=== PATIENT | female | born 1995 | race Caucasian/White ===

== ENCOUNTER 2017-04-29 15:55 | Emergency (ER) | payer SELFPAY ==
[2017-04-29 16:25] VITALS: BP 120/60
--- NOTE | 2017-04-29 16:39 | UC ---
Throat Pain/Nasal [place] HPI - HPI Summary HPI Summary: complaint of sore throat for the ast 3 days might rabia had a fever but hasn't checked headache the glands in her neck are swollen denies coughand nasal congestion taking tylenol for pain with some relief - History of Current Complaint Chief Complaint: UCRespiratory Stated Complaint: SORE THROAT Time Seen by Provider: 04/29/17 16:34 Hx Obtained From: Patient Hx Last Menstrual Period: 04/12/17 - Allergies/Home Medications Allergies/Adverse Reactions: Allergies Allergy/AdvReac Type Severity Reaction Status Date / Time No Known Allergies Allergy Unverified 04/29/17 16:25 PMH/Surg Hx/FS Hx/Imm Hx Previously Healthy: Yes - Surgical History Surgical History: None - Family History Known Family History: Negative: Cardiac Disease, Hypertension, Diabetes - Social History Occupation: Employed Full-time Lives: With Family Alcohol Use: None Substance Use Type: None Smoking Status (MU): Never Smoked Tobacco - Immunization History Vaccination Up to Date: Yes Review of Systems Constitutional: Fever Skin: Negative Eyes: Negative ENT: Sore Throat Respiratory: Negative Cardiovascular: Negative Gastrointestinal: Negative Genitourinary: Negative Motor: Negative Neurovascular: Negative Musculoskeletal: Negative Neurological: Headache Psychological: Negative All Other Systems Reviewed And Are Negative: Yes Physical Exam Triage Information Reviewed: Yes Appearance: No Pain Distress, Well-Nourished Vital Signs: Initial Vital Signs Temp 98.9 F 04/29/17 16:20 Pulse 74 04/29/17 16:20 Resp 14 04/29/17 16:20 BP 120/60 04/29/17 16:20 Pulse Ox 98 04/29/17 16:20 Vital Signs Reviewed: Yes Eyes: Positive: Conjunctiva Clear ENT: Positive: Pharyngeal erythema, TMs normal, Tonsillar swelling. Negative: Tonsillar exudate Dental: Positive: Cervical Lymphadenopathy Respiratory: Positive: Lungs clear, Normal breath sounds, No respiratory distress Cardiovascular: Positive: RRR, No Murmur, Pulses Normal Abdomen Description: Positive: Nontender, Soft Bowel Sounds: Positive: Present Musculoskeletal Exam: Normal Neurological: Positive: Alert Psychological Exam: Normal Skin Exam: Normal Throat Pain/Nasal Course/Dx - Differential Dx/Diagnosis Differential Diagnosis/HQI/PQRI: Pharyngitis, Tonsillitis, Other - strep Provider Diagnoses: tonsilitis Discharge - Discharge Plan Condition: Stable Disposition: HOME Patient Education Materials: Tonsillitis (ED) Referrals: Yves Allen MD [Primary Care Provider] - Additional Instructions: TONSILLITIS What is Tonsillitis? Tonsillitis is an infectious condition with symptoms characterized by inflamed tonsils, fever, painful swallowing, sore throat, and a slight voice change. Other symptoms include a white or yellow coating on the tonsils, swollen lymph nodes, headache, and bad breath. Nausea, vomiting, and abdominal pain may occur in younger children. Throat infection (pharyngitis) often occurs along with tonsillitis. Tonsillitis may be caused by either viruses or bacteria, and often the symptoms are the same no matter which germ is causing the infection. Bacterial tonsillitis can be treated with antibiotics, but viral tonsillitis cannot. Sometimes healthcare providers differentiate between the two by taking a throat culture (a painless swab of the back of the throat) or a quick step test and send it to the lab. Eighty-five percent of throat cultures are negative for strep; the majority of infections are caused by a virus. Symptoms Might Include: Mild to severe sore throat and difficulty swallowing Fever Swollen, tender neck glands Headache Muscle and joint pain Loss of appetite Ear ache Breathing through the mouth Nausea or vomiting How Long Will My Symptoms Last? When tonsillitis is caused by viruses, the length of illness depends on which virus is involved. Most people are almost completely recovered within 1 week. Contagiousness: All forms of tonsillitis are contagious. Tonsillitis usually spreads from person to person by contact with the throat or nasal fluids of someone who is already infected. Drinking glasses and eating utensils should be kept separate from those of other family members and should be washed with hot soapy water, or washed in the human resources compliance manager. All family members should was their hand frequently. If you have a cough, be sure to cover your mouth when coughing. Place used tissues directly in the garbage can.
== END 2017-04-29 17:05 | disposition home or self-care (01) ==
LOC: UCCORT 15:55
DX: J03.90 Acute tonsillitis, unspecified (principal)
CPT/HCPCS: 87651; 99211; G0463

== ENCOUNTER 2017-08-23 14:00 | Emergency (ER) | payer SELFPAY ==
[2017-08-23 14:41] VITALS: BP 120/63
--- NOTE | 2017-08-23 15:00 | UC ---
Abdominal Pain Female HPI - HPI Summary HPI Summary: 21 yo female with epigastric abd pain that starts about 30 minutes after eating has occurred for about a week pain can last for hours no n/v/d no f/c currently no pain pain radiates around to back - History of Current Complaint Chief Complaint: UCGI Stated Complaint: LOWER BACK/ABD PAIN Time Seen by Provider: 08/23/17 14:44 Hx Obtained From: Patient Hx Last Menstrual Period: 08/13/17 Onset/Duration: Gradual Onset, Lasting Weeks - 1 Timing: Intermittent Episodes Lasting: - hours Severity Initially: Moderate Severity Currently: None Pain Intensity: 0 Pain Scale Used: 0-10 Numeric Location: Epigastric Radiates: Yes Radiates to: Back Character: Aching, Sharp Aggravating Factor(s): Food Alleviating Factor(s): Spontaneous Resolution Associated Signs and Symptoms: Positive: Negative Allergies/Adverse Reactions: Allergies Allergy/AdvReac Type Severity Reaction Status Date / Time No Known Allergies Allergy Unverified 08/23/17 14:36 Home Medications: Home Medications Dextromethorphan-Phenylephrine [Daytime Multi-Symptom Col 10-5-325 mg/15Ml] 1 liq PO BID PRN 08/23/17 [History Confirmed 08/23/17] PMH/Surg Hx/FS Hx/Imm Hx Previously Healthy: Yes - Surgical History Surgical History: None - Family History Known Family History: Positive: Other - GB disease Negative: Cardiac Disease, Hypertension, Diabetes - Social History Alcohol Use: None Substance Use Type: None Smoking Status (MU): Never Smoked Tobacco - Immunization History Vaccination Up to Date: Yes Review of Systems Constitutional: Negative Skin: Negative Eyes: Negative ENT: Negative Respiratory: Negative Cardiovascular: Negative Gastrointestinal: Abdominal Pain Genitourinary: Negative Motor: Negative Neurovascular: Negative Musculoskeletal: Negative Neurological: Negative Psychological: Negative Is Patient Immunocompromised?: No All Other Systems Reviewed And Are Negative: Yes Physical Exam Triage Information Reviewed: Yes Appearance: Well-Appearing, No Pain Distress, Well-Nourished Vital Signs: Initial Vital Signs Temp 98.4 F 08/23/17 14:36 Pulse 71 08/23/17 14:36 Resp 16 08/23/17 14:36 BP 120/63 08/23/17 14:36 Pulse Ox 99 08/23/17 14:36 Vital Signs Reviewed: Yes Eyes: Positive: Conjunctiva Clear ENT: Positive: Hearing grossly normal. Negative: Nasal congestion, Nasal drainage, Tonsillar exudate, Trismus, Muffled/hoarse voice Neck: Positive: Supple, Nontender, No Lymphadenopathy Respiratory: Positive: Lungs clear, Normal breath sounds, No respiratory distress Cardiovascular: Positive: RRR, No Murmur Abdomen Description: Positive: Nontender, No Organomegaly, Soft. Negative: CVA Tenderness (R), CVA Tenderness (L), Hepatomegaly, Peritoneal Signs, Pulsatile Mass, Splenomegaly Bowel Sounds: Positive: Present Musculoskeletal: Positive: ROM Intact, No Edema Neurological: Positive: Alert Psychological Exam: Normal Abd Pain Female Course/Dx - Differential Dx/Diagnosis Provider Diagnoses: postparandial abdominal pain of uncertain cause Discharge - Discharge Plan Condition: Stable Disposition: HOME Prescriptions: Famotidine TAB* [Pepcid 20 MG TAB*] 20 mg PO DAILY #14 tab Patient Education Materials: Acute Abdominal Pain (ED) Referrals: Yves Allen MD [Primary Care Provider] - As Soon As Possible [facility] [Outside] (call this number if unable to get in to see Dr Mobley) Additional Instructions: TO ER FOR NEW OR WORSENING SYMPTOMS recheck if a few days if not better Mylanta 2 tablespoons (30 ml) every 2 hours while awake for 2-3 days no more ibuprofen for now
== END 2017-08-23 15:05 | disposition home or self-care (01) ==
LOC: UCCORT 14:00
DX: R10.13 Epigastric pain (principal); M54.5 Low back pain
CPT/HCPCS: 99212; G0463

== ENCOUNTER 2023-08-25 21:33 | Inpatient (IN) ==
[2023-08-26] MEDS ORDERED: Lactated Ringers 1000 ml BAG 1,000 ML IV ONE
[2023-08-26] MEDS ORDERED: Buffered Lidocaine 1% SYRIN 1 ml INTRADERM ONE
[2023-08-26] MEDS ORDERED: ceFOXitin 2 GM IVPREMIX 2 GM/50 ML BAG IVPB ONE
[2023-08-26] MEDS ORDERED: Sodium Citrate/Citric Acid LIQ 15 ML UDC PO ONE
[2023-08-26] MEDS ORDERED: Lactated Ringers 1000 ml BAG 1,000 ML IV SCH ×2 (01:00→04:00)
[2023-08-26] MEDS ORDERED: Bupivacaine 0.5% SDV PF 30ML VIAL ONE (01:22)
[2023-08-26] MEDS ORDERED: Oxytocin 10 UNITS/ML 1 ML VIAL ONE (01:22)
[2023-08-26] MEDS ORDERED: Morphine PF AMP (0.5MG/ML) 5 MG/10 ML AMP ONE (01:22)
[2023-08-26] MEDS ORDERED: Ondansetron 4 mg VIAL 2 MG/ML 2 ml VIAL ONE (02:11)
[2023-08-26] MEDS ORDERED: Phenylephrine 40 mcg/mL 10mL (400mcg) SYRINGE ONE (02:26)
[2023-08-26] MEDS ORDERED: Dexamethasone IV 4 MG/ML VIAL 1 ml VIAL ONE (02:27)
[2023-08-26] MEDS ORDERED: Acetaminophen IV 1 GM/100ML 1,000 MG/100 ML BAG IV ONE (02:44)
[2023-08-26] MEDS ORDERED: Naloxone 0.4 mg VIAL 0.4 mg/ml 1 ml VIAL IV PRN (02:55)
[2023-08-26] MEDS ORDERED: Metoclopramide 5 MG/ML VIAL (10 mg) IV PRN (02:56)
[2023-08-26] MEDS ORDERED: Ondansetron 4 mg VIAL 2 MG/ML 2 ml VIAL IV PRN (02:56)
[2023-08-26] MEDS ORDERED: Naloxone 0.4 mg VIAL 0.4 mg/ml 1 ml VIAL IV PUSH PRN (02:56)
[2023-08-26] MEDS ORDERED: Acetaminophen IV 1 GM/100ML 1,000 MG/100 ML BAG IV PRN (02:56)
[2023-08-26] MEDS ORDERED: Glycerin ADULT 2.4 gm SUPP PR PRN (03:26)
[2023-08-26] MEDS ORDERED: RHO D Immune Globulin (HUMAN) 300 MCG = 1,500 I.U. INJ IM PRN (03:26)
[2023-08-26] MEDS ORDERED: Dibucaine 1% OINT 28.35 GM TUBE PR PRN (03:26)
[2023-08-26] MEDS ORDERED: Witch Hazel PAD JAR TOPICAL PRN (03:26)
[2023-08-26 03:44] LABS: Urine Appearance Cloudy; Urine Bilirubin Negative (Negative); Urine Blood Negative (Negative); Urine Color Amber; Urine Glucose Negative (Negative); Urine Ketones 2+ (Negative); Urine Nitrite Negative (Negative); Urine Protein 2+(100 mg/dL) (Negative); Urine Specific Gravity 1.028 (1.002-1.030); Urine Urobilinogen Negative (Negative)
[2023-08-26 03:53] LABS: Urine Bacteria 1+ (Absent); Urine Red Blood Cell 3+(>10/hpf) (Absent); Urine Squamous Epithelial Cell Present (Absent); Urine White Blood Cell 1+(6-10/hpf) (Absent)
[2023-08-26 04:08] LABS: Urine Benzodiazepine Screen None Detected (None Detect); Urine Cannabinoids Screen None Detected (None Detect); Urine Opiates Screen None Detected (None Detect)
[2023-08-26] MEDS: Oxytocin in LR 20,000 MILLI.UNIT/1,000 ML BAG IV SCH ×2 (08:17→08:19)
[2023-08-27 07:47] LABS: ABS Basophils 0.1 10^3/uL (0.0-0.1); ABS Eosinophils 0.1 10^3/uL (0.0-0.5); ABS Monocytes 0.8 10^3/uL (0.0-0.9); ABS Neutrophils 11.5 10^3/uL (1.5-7.6); Eosinophil % 0.9 %; Hematocrit 32.1 % (35-45); Hemoglobin 10.9 g/dL (11.5-14.3); Lymphocyte % 19.5 %; Mean Corpuscular Hemoglobin 30.7 pg (27-33); Mean Corpuscular Hgb Conc 34.1 g/dL (31-36); Mean Corpuscular Volume 90.1 fL (80-97); Mean Platelet Volume 11.6 fL (7.5-11.2); Platelet Count 216 10^3/uL (150-450); Red Blood Count 3.56 10^6/uL (3.63-4.92); Red Cell Distribution Width 14.1 % (12-17); White Blood Count 15.6 10^3/uL (3.8-11.8)
[2023-08-28] MEDS ORDERED: Influenza vaccine *QUAD* *2023-24* 0.5 ML SYRINGE IM ONE (09:00)
[2023-08-29 07:56] VITALS: BP 145/97
== END 2023-08-29 14:08 | disposition home or self-care (01) | DRG 540 ==
LOC: MCHOB 21:33
PROVIDERS: ADMIT Obstetrics & Gynecology; ATTEND Obstetrics & Gynecology